=== PATIENT | male | born 1965 | race Caucasian/White ===

== ENCOUNTER → 2018-02-28 | Outpatient (CLI) | payer BC ==
[2018-02-28 12:54] LABS: ALBUMIN 4.3 GM/DL (3.2-5.2); ANION GAP 5 MEQ/L (8-16); BLOOD UREA NITROGEN 10 MG/DL (7-18); CALCIUM LEVEL 9.3 MG/DL (8.5-10.1); CARBON DIOXIDE LEVEL 31 MEQ/L (21-32); CHLORIDE LEVEL 102 MEQ/L (98-107); CREATININE FOR GFR 1.07 MG/DL (0.70-1.30); GLOMERULAR FILTRATION RATE > 60.0 (>56); PHOSPHORUS LEVEL 3.5 MG/DL (2.5-4.9); POTASSIUM SERUM 5.2 MEQ/L (3.5-5.1); SODIUM LEVEL 138 MEQ/L (136-145); URIC ACID 5.4 MG/DL (3.5-7.2)
[2018-02-28 13:01] LABS: BASO # 0.1 10^3/uL (0.0-0.2); BASO % 0.9 % (0.0-1.0); EOS # 0.2 10^3/uL (0.0-0.50); EOS % 4.1 % (0.0-3.0); HEMATOCRIT 45.7 % (42.0-52.0); HEMOGLOBIN 15.7 g/dl (13.5-17.5); IMMATURE GRANULOCYTE % 0.7 % (0-3.0); LYMPH # 1.5 10^3/uL (1.5-4.5); LYMPH % 26.4 % (24.0-44.0); MEAN CORPUSCULAR HEMOGLOBIN 33.6 pg (27.0-33.0); MEAN CORPUSCULAR HGB CONC 34.4 g/dl (32.0-36.5); MEAN CORPUSCULAR VOLUME 97.9 fl (80.0-96.0); MONO # 0.6 10^3/uL (0.0-0.8); MONO % 11.1 % (0.0-5.0); NEUTROPHILS # 3.2 10^3/uL (1.8-7.7); NEUTROPHILS % 56.8 % (36.0-66.0); PLATELET COUNT, AUTOMATED 234 10^3/uL (150-450); RED BLOOD COUNT 4.67 10^6/uL (4.30-6.10); RED CELL DISTRIBUTION WIDTH 11.7 % (11.5-14.5); WHITE BLOOD COUNT 5.6 10^3/uL (4.0-10.0)
[2018-03-02 08:25] LABS: ERYTHROCYTE SEDIMENTATION RATE 3 mm/hr (0-20); GLUCOSE, FASTING 94 MG/DL (70-100)
== END ==
LOC: M WUC 10:26
DX: M25.572 Pain in left ankle and joints of left foot (principal)
CPT/HCPCS: 84550

== ENCOUNTER → 2020-03-30 | Outpatient (CLI) | payer OTHER | LOC: M LABSMTC 13:00 | PROVIDERS: ATTEND Orthopaedic Surgery | DX: Z01.812 Encounter for preprocedural laboratory examination (principal); Z20.828 Contact with and (suspected) exposure to other viral communicable diseases ==

== ENCOUNTER 2020-04-20 15:16 | Inpatient (IN) | payer OTHER ==
[~2020-04-20] VITALS: Ht 180.3 cm; Wt 113.4 kg
[2020-04-20] MEDS ORDERED: CLON1TAB8 PO ×2 (15:33→19:48)
[2020-04-20] MEDS ORDERED: LISI-538 PO (15:33)
[2020-04-20] MEDS ORDERED: VENL150C43 PO (15:33)
[2020-04-20] MEDS ORDERED: OMEP-221 PO (15:33)
[2020-04-20] MEDS ORDERED: IBUPROFEN 800 MG TAB PO ONE (17:45)
[2020-04-20 18:11] LABS: BASO # 0.1 10^3/uL (0.0-0.2); BASO % 0.5 % (0.0-1.0); EOS # 0.1 10^3/uL (0.0-0.5); EOS % 0.9 % (0.0-3.0); HEMOGLOBIN 12.7 g/dl (13.5-17.5); LYMPH # 1.3 10^3/uL (1.5-5.0); LYMPH % 12.3 % (24.0-44.0); MEAN CORPUSCULAR HEMOGLOBIN 33.2 pg (27.0-33.0); MEAN CORPUSCULAR HGB CONC 34.3 g/dl (32.0-36.5); MEAN CORPUSCULAR VOLUME 96.9 fl (80.0-96.0); MONO # 1.2 10^3/uL (0.0-0.8); MONO % 11.6 % (0.0-5.0); NEUTROPHILS # 7.7 10^3/uL (1.5-8.5); NEUTROPHILS % 73.6 % (36.0-66.0); PLATELET COUNT, AUTOMATED 316 10^3/uL (150-450); RED BLOOD COUNT 3.82 10^6/uL (4.30-6.10); WHITE BLOOD COUNT 10.5 10^3/uL (4.0-10.0)
[2020-04-20 18:21] LABS: INR 1.12; PROTHROMBIN TIME 14.6 SECONDS (12.5-14.3)
[2020-04-20 18:22] LABS: PARTIAL THROMBOPLASTIN TIME 26.7 SECONDS (24.2-38.5)
[2020-04-20 18:31] LABS: ERYTHROCYTE SEDIMENTATION RATE 51 mm/hr (0-20)
[2020-04-20 18:34] LABS: BLOOD UREA NITROGEN 9 MG/DL (7-18); CALCIUM LEVEL 8.6 MG/DL (8.5-10.1); CARBON DIOXIDE LEVEL 27 MEQ/L (21-32); CHLORIDE LEVEL 99 MEQ/L (98-107); GLOMERULAR FILTRATION RATE > 60.0 (>56); GLUCOSE, FASTING 97 MG/DL (70-100); POTASSIUM SERUM 3.7 MEQ/L (3.5-5.1); SODIUM LEVEL 131 MEQ/L (136-145)
[2020-04-20] MEDS ORDERED: IBUP-1764 PO (19:49)
[2020-04-20] MEDS ORDERED: HEPARIN DRIP 25,000 UNITS in IV 1 EA IV SCH (21:45)
[2020-04-20] MEDS ORDERED: HEPARIN SOD (PORCINE) 5000UNITS/ML 1ML VIAL/SYRINGE IV ONE (21:45)
--- NOTE | 2020-04-20 21:53 | HPEPDOC ---
[facility] Medical History & Physical Date of Admission Apr 20, 2020 Date of Service: Apr 20, 2020 History and Physical CHIEF COMPLAINT: L leg pain and swelling HISTORY OF PRESENT ILLNESS: 54-year-old male with a history of hypertension, received a left knee arthroscopy by Dr. Mcgarry 3 weeks ago, now presenting with acute swelling and pain of the left lower extremity. Venous duplex in the ED revealed a large obstructive deep vein thrombosis. Patient was taking DVT ppx with ASA 81 mg BID after procedure. Dr. Banuelos was consulted from the ED who recommended starting heparin drip. Denies chest pain, palpitations, hemoptysis, dizziness, lightheadedness, fevers, chills or n/v/d. He does endorse dyspnea when pain in the LLE is severe but is not present on ambulation or at rest. PAST MEDICAL HISTORY: HTN anxiety depression PAST SURGICAL HISTORY: R knee arthroplasty L knee arthroscopy SOCIAL HISTORY: Patient denies smoking Patient denies etoh use Patient denies illicit drug use FAMILY HISTORY: review, no pertinent hx ALLERGIES: Please see below. REVIEW OF SYSTEMS: CONSTITUTIONAL: patient denies fevers, chills HEENT: patient denies blurred vision, loss of vision, headache,. CARDIOVASCULAR: patient denies chest pain, palpitations. RESPIRATORY: patient denies shortness of breath, cough, hemoptysis. GASTROINTESTINAL: patient denies abdominal pain, n/v/d, blood in stool. GENITOURINARY: patient denies dysuria, discharge. SKIN: patient denies rashes. MUSCULOSKELETAL: Left leg pain, swelling and erythema NEUROLOGICAL: patient denies focal weakness, numbness, seizures. PSYCHIATRIC: patient denies SI/HI. ENDOCRINE: patient denies polyuria, heat intolerance, cold intolerance. HEMATOLOGIC/LYMPHATIC: patient denies easy bruising. HOME MEDICATIONS: Please see below. PHYSICAL EXAMINATION: VITAL SIGNS: please see below General: NAD, comfortable HEENT: PERRLA, EOMI, sclerae clear Neck: supple, normal ROM, no JVD Respiratory: lungs CTAB, no wheeze, no rales, no crackles CVS: RRR, normal S1, S2, no murmurs Abdo: soft, no masses, no hepatosplenomegaly, BS+, no rebound tenderness Extremities: Left leg erythema and swelling, pain to palpation. Pulses intact 2+ bilaterally. No cyanosis. MSK: no joint deformities, normal ROM Neuro: no focal neuro deficits, moving all 4 extremities, CN2-12 intact. Strength 5/5 in all 4 extremities. No nystagmus. Psych: calm, cooperative, AAO x 3 LABORATORY DATA: See below. IMAGING: L leg venous duplex (04/20/20): Complete occlusive thrombus from the common femoral vein through the popliteal vein and trifurcation to calf veins. MICROBIOLOGY: Please see below. ASSESSMENT:54 yo M with a hx of recent L knee arthroscopy, HTN, anxiety, depression, admitted for management of acute LLE DVT with heparin GGT. . PLAN: #acute occlusive DVT of LLE: - seen on venous duplex - pulses intact, no cyanosis - Dr. Banuelos was called from ED, recommend heparin ggt, will eval patient in am, consult placed #HTN - resume home lisinopril 10 mg daily #Anxiety - resume home dose klonopin #Depression - resume home effexor 150 mg PO qhs GI ppx: omeprazole Dispo: admission expect to last > 2 midnights. Vital Signs Vital Signs Date Time Temp Pulse Resp B/P (MAP) Pulse Ox O2 Delivery O2 Flow Rate FiO2 04/20/20 19:15 99.1 91 16 135/63 (87) 95 Room Air Laboratory Data Labs 24H Laboratory Tests 2 04/20/20 17:49: Immature Granulocyte % (Auto) 1.1, Neutrophils (%) (Auto) 73.6H, Lymphocytes (%) (Auto) 12.3L, Monocytes (%) (Auto) 11.6H, Eosinophils (%) (Auto) 0.9, Basophils (%) (Auto) 0.5, Neutrophils # (Auto) 7.7, Lymphocytes # (Auto) 1.3L, Monocytes # (Auto) 1.2H, Eosinophils # (Auto) 0.1, Basophils # (Auto) 0.1, Nucleated Red Blood Cells % (auto) 0.0, Erythrocyte Sedimentation Rate 51H, Prothrombin Time 14.6H, Prothromb Time International Ratio 1.12, Activated Partial Thromboplast Time 26.7, Anion Gap 5L, Glomerular Filtration Rate > 60.0, Calcium Level 8.6, C-Reactive Protein, Quantitative 15.40H CBC/BMP Laboratory Tests 04/20/20 17:49 Microbiology Microbiology 04/20/20 Respiratory Virus Panel (PCR) ([facility]) - Final, Complete Home Medications Scheduled Clonazepam (Clonazepam) 1 Mg Tablet, 2 MG PO DAILY Clonazepam (Clonazepam) 1 Mg Tablet, 1 MG PO QHS Lisinopril (Lisinopril) 20 Mg Tablet, 20 MG PO DAILY Omeprazole (Omeprazole) 40 Mg Capsule.dr, 40 MG PO TID Venlafaxine HCl (Venlafaxine HCl ER) 150 Mg Cap.er.24h, 150 MG PO QHS Scheduled PRN Ibuprofen (Ibuprofen) 200 Mg Tablet, 800 MG PO TID PRN for PAIN Allergies Coded Allergies: Penicillins (Verified Allergy, Severe, facial swelling, 04/20/20) SARA ACEVEDO MD Apr 20, 2020 21:53
[2020-04-20] MEDS ORDERED: MAALOX 30 ML SUSP *UDC PO PRN (22:00)
[2020-04-20] MEDS ORDERED: MOM 30ML SUSPENSION UDC PO PRN (22:00)
[2020-04-20] MEDS: OMEPRAZOLE 20 MG CAP PO SCH (23:33)
[2020-04-20] MEDS: clonazePAM 1 MG TAB PO SCH (23:33)
[2020-04-20] MEDS: VENLAFAXINE **XR** 75MG CAPSULE PO SCH (23:33)
[2020-04-21] VITALS (7 sets, daily range): BP systolic 104–140; BP diastolic 77–89
[2020-04-21] MEDS: ACETAMINOPHEN TAB 650MG DOSE (2X325MG) PO PRN (01:07)
[2020-04-21 04:32] LABS: INR 1.11; PROTHROMBIN TIME 14.5 SECONDS (12.5-14.3)
[2020-04-21 04:33] LABS: PARTIAL THROMBOPLASTIN TIME 37.7 SECONDS (24.2-38.5)
[2020-04-21] MEDS ORDERED: MORPHINE 2 MG/ML 1ML VIAL (J2270) IV ONE (05:00)
[2020-04-21] MEDS: HEPARIN SOD (PORCINE) 5000UNITS/ML 1ML VIAL/SYRINGE IV PRN (05:03)
--- NOTE | 2020-04-21 08:28 | CR.PDOC ---
General Date of Consultation: Apr 21, [address] Banuelos HISTORY OF PRESENT ILLNESS: The patient is a 54-year-old male status post left knee arthroscopy as per orthopedics approximately 3 weeks ago admitted with left lower extremity DVT 04/20/20. The patient states his symptoms began approximately 6 days ago. He states initially it began with some tightness and cramping in the left calf but has gradually gotten worse over the past few days. He complains of left lower extremity pain, warmth, and swelling. He states yesterday pain became severe and he was unable to bear weight or ambulate at all therefore came to the emergency department. Vascular surgery was consulted for further recommendations. ALLERGIES: Please see below. HOME MEDICATIONS: Please see below. PAST MEDICAL HISTORY: Hypertension Chronic knee pain Anxiety Depression PAST SURGICAL HISTORY: Right knee arthroscopy Left knee arthroscopy FAMILY HISTORY: Hypertension SOCIAL HISTORY: Nonsmoker REVIEW OF SYSTEMS: As noted in HPI otherwise 10 point review of systems unremarkable. PHYSICAL EXAMINATION: VITAL SIGNS: Please see below. GENERAL APPEARANCE: Resting comfortably in bed HEENT: Moist mucous membranes RESPIRATORY: No wheezing CARDIOVASCULAR: Regular Rate and rhythm ABDOMEN: Soft and nontender EXTREMITIES: Left lower extremity with swelling, the skin is tight over the left lower extremity, mild erythema, tenderness with light palpation. Pulses are palpable. He has difficulty moving the left lower extremity. NEUROLOGICAL: Alert and oriented 3 LABORATORY DATA: Please see below. Ultrasound left lower extremity IMPRESSION: Complete occlusive thrombus from the common femoral vein through the popliteal vein and trifurcation to calf veins. <Electronically signed by Oren Armstrong > 04/20/20 1451 ASSESSMENT/PLAN: Left lower extremity occlusive DVT. Currently on heparin drip per protocol. The patient is noted to have left knee arthroscopy as per orthopedics approximately 3 weeks ago. The patient denies any other recent surgeries other than this. Reports no history of cerebral aneurysm. Denies any recent history of trauma or injury. He reports occasional bleeding related to hemorrhoids however reports no bleeding recently. Denies any other bleeding history or blood disorder. He denies any epistaxis, hemoptysis, melena, hematochezia, hematuria. Dr. Banuelos has reviewed with the patient proceeding with left lower extremity thrombolysis later today in interventional radiology. The procedure, risks, benefits and alternatives are reviewed with the patient. She did discuss with the patient that she will use a reduced dose of TPA related to his recent surgery and to reduce any risk of bleeding. The patient verbalizes understanding and agreement and would like to proceed. Informed consent is obtained and placed with the chart. Transfusion consent is obtained and placed with the chart. The patient is NPO, anticipate proceeding with the procedure this afternoon. In the meantime, continue with elevation above the level of the heart. The base of the patient's bed is elevated and the patient's left lower extremity additionally is elevated on pillows. Vital Signs/I&O Vital Signs Date Time Temp Pulse Resp B/P (MAP) Pulse Ox O2 Delivery O2 Flow Rate FiO2 04/21/20 06:00 99.6 81 18 113/77 (89) 96 Room Air I&O- Last 24 Hours up to 6 AM 04/21/20 05:59 Intake Total 910 ml Output Total 0 ml Balance 910 ml Laboratory Data Labs 24H Laboratory Tests 2 04/20/20 17:49: Immature Granulocyte % (Auto) 1.1, Neutrophils (%) (Auto) 73.6H, Lymphocytes (%) (Auto) 12.3L, Monocytes (%) (Auto) 11.6H, Eosinophils (%) (Auto) 0.9, Basophils (%) (Auto) 0.5, Neutrophils # (Auto) 7.7, Lymphocytes # (Auto) 1.3L, Monocytes # (Auto) 1.2H, Eosinophils # (Auto) 0.1, Basophils # (Auto) 0.1, Nucleated Red Blood Cells % (auto) 0.0, Erythrocyte Sedimentation Rate 51H, Prothrombin Time 14.6H, Prothromb Time International Ratio 1.12, Activated Partial Thromboplast Time 26.7, Anion Gap 5L, Glomerular Filtration Rate > 60.0, Calcium Level 8.6, C-Reactive Protein, Quantitative 15.40H 04/21/20 03:57: Prothrombin Time 14.5H, Prothromb Time International Ratio 1.11, Activated Partial Thromboplast Time 37.7 CBC/BMP Laboratory Tests 04/20/20 17:49 Microbiology Microbiology 04/20/20 Respiratory Virus Panel (PCR) ([facility]) - Final, Complete Allergies Coded Allergies: Penicillins (Verified Allergy, Severe, facial swelling, 04/20/20) Home Medications Scheduled Clonazepam (Clonazepam) 1 Mg Tablet, 2 MG PO DAILY, (Reported) Clonazepam (Clonazepam) 1 Mg Tablet, 1 MG PO QHS, (Reported) Lisinopril (Lisinopril) 20 Mg Tablet, 20 MG PO DAILY, (Reported) Omeprazole (Omeprazole) 40 Mg Capsule.dr, 40 MG PO TID, (Reported) Venlafaxine HCl (Venlafaxine HCl ER) 150 Mg Cap.er.24h, 150 MG PO QHS, (Reported) Scheduled PRN Ibuprofen (Ibuprofen) 200 Mg Tablet, 800 MG PO TID PRN for PAIN, (Reported) Fauzia Bedoya Apr 21, 2020 08:27
--- NOTE | 2020-04-21 09:39 | IPNPDOC ---
Text Note Date of Service The patient was seen on 04/21/20. NOTE Subjective: No acute overnight events reported. Patient seen and examined at bedside. No new medical complaints. Still notes left lower extremity pain. Objective: General: NAD, lying comfortably in bed HEENT: NC/AT Lungs: CTA B/L Heart: +S1S2, RRR Abd: soft, NT, +BS Ext: LLE tender to palpation A/P: 54 yo M with a hx of recent L knee arthroscopy, HTN, anxiety, depression, a dmitted for management of acute LLE DVT with heparin GGT. #acute occlusive DVT of LLE - seen on venous duplex - pulses intact, no cyanosis - heparin gtt - vascular surgery c/s appreciated - plan for thrombectomy today #HTN - resume home lisinopril 10 mg daily #Anxiety - resume home dose klonopin #Depression - resume home effexor 150 mg PO qhs Dispo: pending procedural intervention, clinical improvement VS,Mauriciobone, I+O VS, Fishbone, I+O Laboratory Tests 04/20/20 17:49 Vital Signs Date Time Temp Pulse Resp B/P (MAP) Pulse Ox O2 Delivery O2 Flow Rate FiO2 04/21/20 06:00 99.6 81 18 113/77 (89) 96 Room Air I&O- Last 24 Hours up to 6 AM 04/21/20 06:00 Intake Total 1210 ml Output Total 625 ml Balance 585 ml DEBBIE GENTILE MD Apr 21, 2020 09:39
[2020-04-21] MEDS ORDERED: MORPHINE 2 MG/ML 1ML VIAL (J2270) IV PRN (09:45)
[2020-04-21] MEDS: OMEPRAZOLE 20 MG CAP PO SCH ×2 (09:54→21:40)
[2020-04-21] MEDS: DOCUSATE SODIUM 100MG CAPSULE PO SCH ×2 (09:54→21:39)
[2020-04-21] MEDS: clonazePAM 1 MG TAB PO SCH ×2 (09:55→21:41)
[2020-04-21] MEDS: lisinopriL 20 MG TAB PO SCH (09:57)
[2020-04-21 11:06] LABS: HEMATOCRIT 35.2 % (42.0-52.0); HEMOGLOBIN 12.1 g/dl (13.5-17.5); MEAN CORPUSCULAR HEMOGLOBIN 33.4 pg (27.0-33.0); MEAN CORPUSCULAR HGB CONC 34.4 g/dl (32.0-36.5); MEAN CORPUSCULAR VOLUME 97.2 fl (80.0-96.0); PLATELET COUNT, AUTOMATED 309 10^3/uL (150-450); RED BLOOD COUNT 3.62 10^6/uL (4.30-6.10); WHITE BLOOD COUNT 8.5 10^3/uL (4.0-10.0)
[2020-04-21 11:25] LABS: INR 1.1; PROTHROMBIN TIME 14.4 SECONDS (12.5-14.3)
[2020-04-21 11:27] LABS: PARTIAL THROMBOPLASTIN TIME 54.9 SECONDS (24.2-38.5)
[2020-04-21 11:39] LABS: ALT/SGPT 43 U/L (12-78); BILIRUBIN,TOTAL 0.7 MG/DL (0.2-1.0); BLOOD UREA NITROGEN 10 MG/DL (7-18); CALCIUM LEVEL 8.5 MG/DL (8.5-10.1); CARBON DIOXIDE LEVEL 27 MEQ/L (21-32); CHLORIDE LEVEL 101 MEQ/L (98-107); CREATININE FOR GFR 0.68 MG/DL (0.70-1.30); GLOMERULAR FILTRATION RATE > 60.0 (>56); GLUCOSE, FASTING 100 MG/DL (70-100); SODIUM LEVEL 134 MEQ/L (136-145); TOTAL PROTEIN 6.7 GM/DL (6.4-8.2)
[2020-04-21] MEDS ORDERED: HEPARIN 25,000 UNITS/250 ML D5W BAG (100 UNITS/ML) (J1644 PER 1000UNITS) As Ordered ONE (14:43)
[2020-04-21] MEDS ORDERED: HEPARIN DRIP 25,000 UNITS in IV 1 EA IV SCH (15:00)
[2020-04-21] MEDS ORDERED: ALTEPLASE RECOMBINANT 25 MG in NS 225 ML IV SCH (15:00)
--- NOTE | 2020-04-21 15:21 | ROOPDOC ---
[facility] Report Of Operation Report of Operation DATE OF PROCEDURE: 04/21/20 PREPROCEDURE DIAGNOSES: Left lower extremity iliofemoral popliteal DVT status post knee arthroscopy POSTPROCEDURE DIAGNOSES: Same PROCEDURE: 1. Ultrasound-guided access left popliteal vein 2. Left lower extremity venogram 3. Placement of a 50 cm infusion length TPA thrombolysis catheter SURGEON: Isidra Banuelos MD ANESTHESIA: Local anesthesia 13 mL lidocaine. Moderate intravenous conscious sedation with supervised by Dr. Banuelos. The patient was independently monitored by registered nurse assign Department of radiology using automated blood pressure, EKG, and pulse oximetry. The details sedation record is permanently stored in the hospital information system. The following is a brief sedation record: Start time 14:34, stop time 14:58, Versed 1 mg IV, fentanyl 50 g IV, heparin 500 units an hour via sheath, tPA 10 mg IV. CONTRAST: 16 mL Isovue-300 INDICATION FOR PROCEDURE: This is a very pleasant 54-year-old gentleman who underwent a knee arthroscopy on the left 3 weeks ago and subsequently has developed increased swelling and tightness in the calf that was exacerbated by trying to walk without his crutches this week. It has progressively gotten more more swollen tight and painful. He came to the ER and was admitted and put on heparin drip and we discussed the risks benefits and alternatives to tPA thrombolysis. The patient has had surgery in the recent past, which makes tPA a bit more risky, so we will be careful how much we use and watch him closely. Unfortunately, we likely will not be able to use full dose TPA, but any amount will be helpful to recannulize the DVT. He will be watched closely for signs of bleeding. The patient was extensively counseled about his risks of bleeding and denies any history of brain aneurysms, strokes, TIAs, head injuries, falls, recent traumas or surgeries other than his knee arthroscopy, he denies nosebleeds bleeding gums hematuria hematochezia hematemesis hemoptysis. He has no history of bleeding or clotting disorders that he knows of, and no other positive bleeding risk were identified. Although he is a bit higher risk due to recent surgery, I think it is safe to at least administer a moderate amount of TPA to help break down the extensive left lower extremity thrombus. Depending on how much we are able to clear, we may or may not place an IVC filter later today. The patient is agreeable to this plan and informed consent was obtained. INTERPRETATION: 1. Thrombus is noted including the popliteal vein on ultrasound. 2. Venogram of the left lower extremity shows occlusive thrombus in the po pliteal vein, the femoral vein, and the external iliac vein up to the junction with the hypogastric vein. The common iliac vein is widely patent with good flow into the IVC. 3. TPA thrombolysis catheter successfully placed with the tip in the common iliac vein and the distal end in the popliteal vein. REPORT OF OPERATION: Patient was brought to the angiographic suite in stable con dition and placed prone on the fluoroscopic table. His bilateral posterior knees were prepped and draped in a sterile fashion. A timeout was performed. Sedation was administered without complication. Local anesthesia was administered to the skin and subcutaneous tissue on the posterior knee and a microneedle was used to access the popliteal vein under ultrasound guidance. Color-flow Doppler confirmed there was complete occlusion of the popliteal vein with thrombus and a patent popliteal artery. Through this access a micro-wire was placed and this took a bit of time due to the thrombus. We then placed a 4 Pashto sheath and flushed the sheath with saline. We then advanced a Glidewire into the IVC from this access, which also took a bit of time due to extensive thrombus. We then advanced a 50 cm infusion length thrombolysis catheter over the wire so that the tip was in the common iliac vein proximal to the thrombus. In the distal aspect of the infusion catheter was just proximal to the tip of the sheath. We then restarted the heparin drip through the sheath at 500 units an hour. We gave 8 mg of TPA through the thrombolysis catheter and then started a drip through the thrombus lysis catheter of 5 mg of TPA an hour. We will recheck in a couple hours. We will decide on placement of IVC filter at that time. The patient was then placed back into the supine position and returned to recovery in stable condition. He tolerated the procedure and the sedation well. ESTIMATED BLOOD LOSS: Approximately 5 mL. COMPLICATIONS: None. PLAN: We do not have any ICU beds available in the hospital right now, as the hospitalist that capacity. Therefore we will keep the patient down in interventional radiology and I will help the nurses keep an eye on him down here. He will run 5 mg an hour tPA for several hours, we will try clears much of the thrombus is possible, at least grade luminal flow to help alleviate some of the symptoms. Depending on how much thrombus were able to clear, we may decide to place an IVC filter at the completion of the case. Unfortunately, I think this thrombus is likely been present for 2-3 weeks, thus it is subacute and may be more difficult to break down with the TPA. Nevertheless, I think it is certainly worth trying. We appreciate the opportunity to participate in the care of this patient. ISIDRA BANUELOS MD Apr 21, 2020 15:21
[2020-04-21] MEDS ORDERED: PERCOCET 5MG/325MG TAB As Ordered ONE (16:33)
[2020-04-21] MEDS ORDERED: PERCOCET 5MG/325MG TAB PO ONE (16:35)
[2020-04-21] MEDS: HEPARIN DRIP 25,000 UNITS in IV 1 EA IV SCH (19:00)
--- NOTE | 2020-04-21 19:26 | ROOPDOC ---
[facility] Report Of Operation Report of Operation DATE OF PROCEDURE: 04/21/20 PREPROCEDURE DIAGNOSES: DVT left lower extremity status post TPA thrombolysis catheter placement POSTPROCEDURE DIAGNOSES: Same PROCEDURE: 1. Planned repeat left lower extremity venogram 2. Removal left iliofemoral venous thrombolysis catheter 3. Angioplasty left iliac, femoral vein with 7 x 200 [place] balloon 4. Completion venogram SURGEON: Isidra Banuelos MD ANESTHESIA: Local anesthesia 3 mL lidocaine. Moderate intravenous conscious sedation was supervised by Dr. Banuelos. The patient was independently monitored by registered nurse aside the Department of radiology using automated blood pressure, EKG, and pulse oximetry. The detail sedation record is permanently stored in the hospital information system. The following is a brief sedation record: Start time 18:41, stop time in 19:01, Versed 1.5 mg IV, fentanyl 75 g IV, tPA 10 mg IV, heparin drip maintained at 500 units/hour. CONTRAST: 44 mL Isovue-300 INDICATION FOR PROCEDURE: This is a 54-year-old gentleman with extensive left iliofemoral popliteal DVT status post left knee arthroscopy 3 weeks ago, with a tense painful left lower extremity who underwent venogram and placement of a TPA thrombolysis catheter earlier today. Risks benefits and alternatives for planned repeat venogram and possible discontinuation of the catheter possible IVC filter placement were explained to the patient he was agreeable to proceed. Informed consent was obtained. INTERPRETATION: 1. There is definitely a significant improvement in flow through the femoral vein, still some residual thrombus in the iliac vein, but this is improved also. 2. After administration of 10 mg additional TPA, there is a marked improvement in flow through the central system. 3. After angioplasty from the common iliac vein to the proximal popliteal vein with sequential three-minute inflations with a 7 x 20 [place] balloon, there is a marked improved flow through to the central system. There is still residual thrombus, primarily at the sequeira of the iliac vein, but it is markedly improved. REPORT OF OPERATION: The patient was brought to the angiographic suite in stable condition. He was placed prone in the TPA drip was disconnected, and the heparin drip was switched to his peripheral IV. The heparin drip was maintained at 500 units an hour during the procedure and then increased to 1500 units an hour, which was his preprocedure rate, at the end of the procedure today. His posterior left knee and catheter and sheath were prepped and draped in a sterile fashion. A timeout was performed. Sedation was administered without comp lication. A repeat venogram was performed please see interpretation above. 10 mg of TPA in 100 mL of saline was administered through the TPA catheter. Repeat venograms were performed. Please see interpretation above. We then passed a where's the catheter and removed the catheter. We placed a 7 x 200 angioplasty balloon over the wire and angioplasty from the common iliac vein to the distal femoral vein for sequential three-minute inflations. Following this, there is a marked improvement in flow through to the central system. There is still residual thrombus, primarily in the external iliac vein, but all of the thrombus is markedly improved and resolved from our pre-thrombolysis images. This should help the patient with his outflow in the left lower extremity. I do not feel the patient needs an IVC filter at this time. A majority of his clot burden has been treated with TPA. We removed the sheath and held pressure for 15 minutes for good hemostasis. Sterile dressings were applied. The patient was transferred ba to his stretcher in a supine position. We will monitor him postprocedure and transfer him back to his room. ESTIMATED BLOOD LOSS: Approximately 5 mL. COMPLICATIONS: none. PLAN: It is okay to resume preprocedure diet medications and orders per the [facility] team. He will be on bedrest for 3 hours postprocedure, then slowly increase activity to ambulation as tolerated. The patient's leg pain and symptoms should resolve with ongoing anticoagulation over the next 3 months, and he will need a repeat venous duplex at that time. He of course still has some iliac thrombus, minimal femoral thrombus, and untreated tibial and popliteal t hrombus which addition to his recent arthroscopy will likely result in ongoing swelling of the left lower extremity, but overall this should improve after his procedure today and with anticoagulation and time. The patient should elevate the left lower extremity above the level of the heart whenever he is supine or rest. While in the hospital, the end of the bed elevated on a metal bar and should be elevated like this to help with venous return. It will greatly assist with swelling. Continue the heparin drip overnight, but okay to convert to oral anticoagulation in the morning if he has no bleeding events overnight. I would recommend eliquis or Coumadin. We appreciate the opportunity to purchase patent care of this patient. ISIDRA BANUELOS MD Apr 21, 2020 19:26
[2020-04-21] MEDS ORDERED: ONDANSETRON 4MG/2ML VIAL IV PRN (20:30)
[2020-04-21] MEDS: VENLAFAXINE **XR** 75MG CAPSULE PO SCH (21:42)
[2020-04-22] MEDS: ACETAMINOPHEN TAB 650MG DOSE (2X325MG) PO PRN (00:33)
[2020-04-22 01:15] VITALS: BP 128/70
[2020-04-22 02:00] VITALS: BP 123/71
[2020-04-22] MEDS: HEPARIN SOD (PORCINE) 5000UNITS/ML 1ML VIAL/SYRINGE IV PRN (02:07)
[2020-04-22 06:00] VITALS: BP 103/79
[2020-04-22] MEDS: HEPARIN DRIP 25,000 UNITS in IV 1 EA IV SCH (06:11)
[2020-04-22 07:06] LABS: HEMOGLOBIN 12.1 g/dl (13.5-17.5); MEAN CORPUSCULAR HEMOGLOBIN 32.4 pg (27.0-33.0); MEAN CORPUSCULAR HGB CONC 32.7 g/dl (32.0-36.5); MEAN CORPUSCULAR VOLUME 98.9 fl (80.0-96.0); PLATELET COUNT, AUTOMATED 248 10^3/uL (150-450); RED BLOOD COUNT 3.74 10^6/uL (4.30-6.10); WHITE BLOOD COUNT 8.8 10^3/uL (4.0-10.0)
[2020-04-22 07:23] LABS: BLOOD UREA NITROGEN 10 MG/DL (7-18); CALCIUM LEVEL 8.4 MG/DL (8.5-10.1); CARBON DIOXIDE LEVEL 26 MEQ/L (21-32); CHLORIDE LEVEL 104 MEQ/L (98-107); CREATININE FOR GFR 0.84 MG/DL (0.70-1.30); GLOMERULAR FILTRATION RATE > 60.0 (>56); GLUCOSE, FASTING 95 MG/DL (70-100); POTASSIUM SERUM 3.5 MEQ/L (3.5-5.1); SODIUM LEVEL 135 MEQ/L (136-145)
[2020-04-22] MEDS: OMEPRAZOLE 20 MG CAP PO SCH (08:54)
[2020-04-22] MEDS: clonazePAM 1 MG TAB PO SCH (08:54)
[2020-04-22] MEDS: DOCUSATE SODIUM 100MG CAPSULE PO SCH (08:54)
[2020-04-22 08:56] VITALS: BP 122/71
[2020-04-22] MEDS: lisinopriL 20 MG TAB PO SCH (08:56)
[2020-04-22 14:00] VITALS: BP 120/70
[2020-04-22] MEDS ORDERED: ELIQ5TAB PO (14:24)
--- NOTE | 2020-04-22 16:09 | DS.PDOC ---
Discharge Summary General Date of Admission Apr 20, 2020 at 21:53 Date of Discharge 04/22/20 Discharge Summary PROCEDURES PERFORMED DURING STAY: Left lower extremity venogram. Left iliofemoral venous thrombolysis catheter insertion. Left iliac femoral vein angioplasty TPA thrombolysis catheter DISCHARGE DIAGNOSES: #LLE DVT Secondary diagnoses HTN anxiety/depression COMPLICATIONS/CHIEF COMPLAINT: Left Leg Dvt. HISTORY OF PRESENT ILLNESS: 54-year-old male with a history of hypertension, received a left knee arthroscopy by Dr. Mcgarry 3 weeks ago, now presenting with acute swelling and pain of the left lower extremity. Venous duplex in the ED revealed a large obstructive deep vein thrombosis. Patient was taking DVT ppx with ASA 81 mg BID after procedure. Dr. Banuelos was consulted from the ED who recommended starting heparin drip. Denies chest pain, palpitations, hemoptysis, dizziness, lightheadedness, fevers, chills or n/v/d. He does endorse dyspnea when pain in the LLE is severe but is not present on ambulation or at rest. HOSPITAL COURSE: 54 yo M with a hx of recent L knee arthroscopy, HTN, anxiety, depression, admitted for management of acute LLE DVT with heparin GGT. #acute occlusive DVT of LLE - seen on venous duplex - pulses intact, no cyanosis - heparin gtt - vascular surgery c/s appreciated - underwent procedural intervention - follow up by vascular surgery, started on anti-coagulation therapy with outpatient follow up. #HTN - resume home lisinopril 10 mg daily #Anxiety - resume home dose klonopin #Depression - resume home effexor 150 mg PO qhs DISCHARGE MEDICATIONS: Please see below. ALLERGIES: Please see below. PHYSICAL EXAMINATION ON DISCHARGE: VITAL SIGNS: Please see below. General: NAD, lying comfortably in bed HEENT: NC/AT Lungs: CTA B/L Heart: +S1S2, RRR Abd: soft, NT, +BS Ext: LLE tender to palpation LABORATORY DATA: Please see below. ACTIVITY: [As tolerated]. DISPOSITION: Discharge home with services DISCHARGE INSTRUCTIONS: 1. Follow up with PCP in 3-5 days 2. Follow up with vascular surgery as directed. DISCHARGE CONDITION: [Stable]. TIME SPENT ON DISCHARGE: 35 minutes. Vital Signs/I&Os Vital Signs Date Time Temp Pulse Resp B/P (MAP) Pulse Ox O2 Delivery O2 Flow Rate FiO2 04/22/20 14:00 99.8 87 16 120/70 (87) 95 Room Air 04/21/20 19:30 2 I&O- Last 24 Hours up to 6 AM 04/22/20 06:00 Intake Total 2580 ml Output Total 3100 ml Balance -520 ml Laboratory Data Labs 24H Laboratory Tests 2 04/22/20 01:11: Activated Partial Thromboplast Time 61.7H 04/22/20 06:30: Nucleated Red Blood Cells % (auto) 0.0, Anion Gap 5L, Glomerular Filtration Rate > 60.0, Calcium Level 8.4L 04/22/20 07:53: Activated Partial Thromboplast Time 89.6H CBC/BMP Laboratory Tests 04/22/20 06:30 Microbiology Microbiology 04/20/20 Respiratory Virus Panel (PCR) ([facility]) - Final, Complete Discharge Medications Scheduled Apixaban (Eliquis) 5 Mg Tablet, 10 MG PO Q12H Clonazepam (Clonazepam) 1 Mg Tablet, 2 MG PO DAILY, (Reported) Clonazepam (Clonazepam) 1 Mg Tablet, 1 MG PO QHS, (Reported) Lisinopril (Lisinopril) 20 Mg Tablet, 20 MG PO DAILY, (Reported) Omeprazole (Omeprazole) 40 Mg Capsule.dr, 40 MG PO TID, (Reported) Venlafaxine HCl (Venlafaxine HCl ER) 150 Mg Cap.er.24h, 150 MG PO QHS, (Reported) Allergies Coded Allergies: Penicillins (Verified Allergy, Severe, facial swelling, 04/20/20) DEBBIE GENTILE MD Apr 22, 2020 16:09
[2020-04-22] MEDS ORDERED: APIXABAN 5 MG TAB (ELIQUIS) PO SCH (18:00)
== END 2020-04-22 17:18 | disposition home health service (06) | DRG 182 ==
LOC: M ED 15:16 → M ED INP 21:53 → M MSPAV 04-21 00:46
PROVIDERS: ADMIT Family Medicine; ATTEND Internal Medicine
PROC: 067N3ZZ Dilation of Left Femoral Vein, Percutaneous Approach (ICD-10-PCS; 2020-04-21)
PROC: 06HD3DZ Insertion of Intraluminal Device into Left Common Iliac Vein, Percutaneous Approach (ICD-10-PCS; 2020-04-21)
PROC: 3E05317 Introduction of Other Thrombolytic into Peripheral Artery, Percutaneous Approach (ICD-10-PCS; principal; 2020-04-21 11:30)
DX: I82.412 Acute embolism and thrombosis of left femoral vein (principal); I82.422 Acute embolism and thrombosis of left iliac vein; I10 Essential (primary) hypertension; F41.9 Anxiety disorder, unspecified; F32.9 Major depressive disorder, single episode, unspecified; Z79.899 Other long term (current) drug therapy; Z88.0 Allergy status to penicillin; Z96.651 Presence of right artificial knee joint

== ENCOUNTER → 2020-04-20 | Outpatient (CLI) | payer OTHER ==
[~2020-04-20] MED LIST: ALTEPLASE 2MG/2ML VIAL As Ordered ONE; CLON1TAB8 PO; ELIQ5TAB PO; IBUP-1764 PO; ISOVUE-300 61% 50ML VIAL As Ordered ONE; LIDOCAINE 1% MDV 20ML VIAL As Ordered ONE; LISI-538 PO; MIDAZOLAM INJ 2MG/2ML VIAL (J2250 PER 1MG) As Ordered ONE; OMEP-221 PO; VENL150C43 PO; fentaNYL 100 MCG/2 ML INJECTION (J3010) As Ordered ONE
--- NOTE | 2020-04-20 14:54 | REP ---
INDICATION: R/O DVT, LEFT LEG SWELLING AND PAIN COMPARISON: None. TECHNIQUE: Lubin scale and color Doppler evaluation left lower extremity using linear high frequency transducer. FINDINGS: Ultrasound examination of the left lower extremity demonstrates complete occlusion from the common femoral vein through the popliteal vein and trifurcation. Overlying subcutaneous edema noted. IMPRESSION: Complete occlusive thrombus from the common femoral vein through the popliteal vein and trifurcation to calf veins. <Electronically signed by Oren Armstrong > 04/20/20 [id number]
== END ==
LOC: M RAD 14:21
PROVIDERS: ATTEND Physician Assistant
DX: I82.519 Chronic embolism and thrombosis of unspecified femoral vein (principal)

== ENCOUNTER → 2020-11-22 | Outpatient (REF) ==
[~2020-11-22] MED LIST changes: -ALTEPLASE 2MG/2ML VIAL As Ordered ONE; -ISOVUE-300 61% 50ML VIAL As Ordered ONE; -LIDOCAINE 1% MDV 20ML VIAL As Ordered ONE; -LISI-538 PO; +LISI20TA33 PO; -MIDAZOLAM INJ 2MG/2ML VIAL (J2250 PER 1MG) As Ordered ONE; -fentaNYL 100 MCG/2 ML INJECTION (J3010) As Ordered ONE
--- NOTE | 2020-11-22 13:55 | REP ---
INDICATION: ARTHRITIS COMPARISON: None. TECHNIQUE: There are three views including AP, lateral and patellofemoral sunrise projections. FINDINGS: Mineralization is normal. There is joint space narrowing and osteophytic growth of the medial compartment. The lateral compartment and patellofemoral compartment are unremarkable. There is no effusion. IMPRESSION: Medial compartment osteoarthritis. <Electronically signed by Neo Foster > 11/22/20 [id number]
== END ==
LOC: M PLAIMG 12:33
PROVIDERS: ATTEND Internal Medicine
DX: M17.11 Unilateral primary osteoarthritis, right knee (principal)

== ENCOUNTER → 2020-12-21 | Outpatient (CLI) | payer OTHER ==
--- NOTE | 2020-12-21 12:49 | REP ---
INDICATION: HX OF DVT. COMPARISON: 08/10/2020 TECHNIQUE: Multiple ultrasonographic images of the deep venous structures of the left lower extremity were obtained from the inguinal ligament to the ankle. Venous compression techniques, color doppler imaging, and augmentation techniques were also obtained where appropriate. As per the ACR guidelines the anterior tibial vein can not be effectively evaluated. Only compression techniques in the calf on the peroneal and posterior tibial veins was attempted/performed. FINDINGS: There is abnormal echogenic material seen within the femoral vein in a fashion which does not appear to be significantly changed compared to the prior exam.. Coaptation is achievable throughout. Doppler interrogation shows a decreased response to respiratory variability and augmentation in the thigh. Compression techniques in the calf were unobtainable. The color flow images show what appears to be a decreased vascular pattern throughout the thigh. IMPRESSION: Once again, there is a nonocclusive thrombus in the thigh as described above. This does not appear to be significantly changed from the 08/10/2020 exam. Additionally, a calf DVT cannot be ruled out as described above. <Electronically signed by Feliciano Ferrara > 12/21/20 [id number]
== END ==
LOC: M RAD 12:05
PROVIDERS: ATTEND Family Medicine
DX: I82.412 Acute embolism and thrombosis of left femoral vein (principal)

== ENCOUNTER → 2023-03-24 | Outpatient (CLI) | payer MEDICARE, OTHER ==
[~2023-03-24] MED LIST changes: -OMEP-221 PO; +OMEP40CA5 PO
[2023-03-24 14:53] LABS: BASO # 0.1 10^3/uL (0.0-0.2); BASO % 0.8 % (0.0-1.0); EOS # 0.3 10^3/uL (0.0-0.5); EOS % 3.8 % (0.0-3.0); HEMOGLOBIN 13.6 g/dl (13.5-17.5); LYMPH # 2.6 10^3/uL (1.5-5.0); LYMPH % 33.7 % (24.0-44.0); MEAN CORPUSCULAR HEMOGLOBIN 34.6 pg (27.0-33.0); MEAN CORPUSCULAR VOLUME 101.8 fl (80.0-96.0); MONO # 0.8 10^3/uL (0.0-0.8); NEUTROPHILS # 3.9 10^3/uL (1.5-8.5); NEUTROPHILS % 51.3 % (36.0-66.0); PLATELET COUNT, AUTOMATED 141 10^3/uL (150-450); RED BLOOD COUNT 3.93 10^6/uL (4.30-6.10); WHITE BLOOD COUNT 7.7 10^3/uL (4.0-10.0)
[2023-03-24 15:04] LABS: THYROID STIMULATING HORMONE 7.432 uIU/ML (0.55-4.78)
[2023-03-24 15:05] LABS: FREE T4 0.92 NG/DL (0.89-1.76)
[2023-03-24 15:10] LABS: ALBUMIN 3.3 G/DL (3.2-5.2); ALKALINE PHOSPHATASE 80 U/L (46-116); ALT/SGPT 44 U/L (7.0-40); AST/SGOT 105 U/L (<34); BILIRUBIN,TOTAL 0.7 MG/DL (0.3-1.2); BLOOD UREA NITROGEN < 5 MG/DL (9-23); CALCIUM LEVEL 8.8 MG/DL (8.5-10.1); CARBON DIOXIDE LEVEL 23 MMOL/L (20-31); CHLORIDE LEVEL 102 MMOL/L (98-107); CHOLESTEROL LEVEL 167 MG/DL (<200); CHOLESTEROL RISK RATIO 5.01 (<5); CREATININE FOR GFR 0.71 MG/DL (0.70-1.30); GLOMERULAR FILTRATION RATE > 60.0 (>56); GLUCOSE, FASTING 95 MG/DL (60-100); HDL CHOLESTEROL 33.3 MG/DL (>40); LDL CHOLESTEROL 110.9 MG/DL (<100); NON-HDL-C 133.7 MG/DL; SODIUM LEVEL 137 MMOL/L (136-145); TRIGLYCERIDES LEVEL 114 MG/DL (<150)
[2023-03-24 15:52] LABS: HEMOGLOBIN A1c 4.5 % (4.0-6.0)
== END ==
LOC: M LAB 13:42
PROVIDERS: ATTEND Nurse Practitioner Family
DX: E87.6 Hypokalemia (principal); N40.0 Benign prostatic hyperplasia without lower urinary tract symptoms; I10 Essential (primary) hypertension; Z13.220 Encounter for screening for lipoid disorders; R73.9 Hyperglycemia, unspecified; Z12.5 Encounter for screening for malignant neoplasm of prostate
CPT/HCPCS: 36415; 80053; 80061; 83036; 84439; 84443; 85025; G0103

== ENCOUNTER → 2024-05-04 | Outpatient (CLI) | payer MEDICAID | LOC: M OUTALCOH 07:35 | PROVIDERS: ATTEND Psychiatry & Neurology Psychiatry | DX: F10.20 Alcohol dependence, uncomplicated (principal) ==

== ENCOUNTER 2024-05-13 13:57 | Outpatient (RCR) | payer MEDICAID | END 2024-05-14 | LOC: M OUTALCOH 13:57 | PROVIDERS: ATTEND Psychiatry & Neurology Psychiatry | DX: F10.20 Alcohol dependence, uncomplicated (principal) ==

== ENCOUNTER 2024-06-10 13:55 | Outpatient (RCR) | payer MEDICAID | END 2024-06-11 | LOC: M OUTALCOH 13:55 | PROVIDERS: ATTEND Psychiatry & Neurology Psychiatry | DX: F10.20 Alcohol dependence, uncomplicated (principal) ==

== ENCOUNTER 2024-07-08 16:00 | Outpatient (RCR) | payer MEDICAID | END 2024-07-12 | LOC: M OUTALCOH 16:00 | PROVIDERS: ATTEND Psychiatry & Neurology Psychiatry | DX: F10.20 Alcohol dependence, uncomplicated (principal) ==

== ENCOUNTER 2024-07-27 10:33 | Outpatient (RCR) | payer MEDICAID | END 2024-08-11 | LOC: M OUTALCOH 10:33 | PROVIDERS: ATTEND Psychiatry & Neurology Psychiatry | DX: F10.20 Alcohol dependence, uncomplicated (principal) ==